=== PATIENT | male | born 1955 | race American Indian/Alaskan Native ===

== ENCOUNTER 2017-12-31 10:49 | Outpatient (CLI) | payer BC ==
[2017-12-31 12:14] LABS: Blood Urea Nitrogen 12 mg/dL (9-20)
--- NOTE | 2017-12-31 15:42 | Cat Scan Report ---
CT CHEST WITH CONTRAST: HISTORY: Abnormal chest x-ray. COMPARISON: None at this facility. TECHNIQUE: Helical CT in 1.25mm intervals following IV contrast. Sagittal and coronal reformatted images. FINDINGS: Thyroid gland: Normal. Tracheobronchial tree: Normal. Esophagus: Normal. Heart: Normal. Pericardium: Normal. Mediastinum: Normal. Lung Campos: There are a few scattered blebs and bulla along the medial surface of the left upper lobe and left apical region. The largest bulla measures 2 cm. This may represent minimal paraseptal emphysematous changes. The remainder of the lung parenchyma is within normal limits. No evidence for nodule, mass or infiltrate. Pleural Spaces: Normal. Musculoskeletal: Mild thoracic spondylosis. No fracture or suspicious bony lesion. IMPRESSION: Essentially unremarkable CT chest with contrast. There are a few scattered blebs and bulla in the peripheral left upper lobe as described. No suspicious nodule or adenopathy.
== END 2017-12-31 10:50 | disposition home or self-care (01) ==
LOC: CT 10:49
PROVIDERS: ATTEND Internal Medicine
DX: J43.9 Emphysema, unspecified (principal); R93.8 Abnormal findings on diagnostic imaging of other specified body structures; M47.894 Other spondylosis, thoracic region
CPT/HCPCS: 36415; 71260; 82565; 84520; Q9967